=== PATIENT | female | born 1995 | race Caucasian/White ===

== ENCOUNTER 2023-08-08 13:09 | Emergency (ER) | payer MEDICAID, SELFPAY ==
[2023-08-08 13:21] VITALS: BP 127/82; PULSE 90; RESP 16; TEMP 36.6; O2SAT 98; BMI 27.8
--- NOTE | 2023-08-08 13:48 | ED_ITS ---
HPI - General Adult 2 General: Chief complaint: General Medical Stated complaint: full body pains Time Seen by Provider: 08/08/23 13:46 History of Present Illness: 28-year-old female comes in today with c omplaints of fatigue and general body aches. Patient has known history of anemia. Patient reports no other symptoms such as fever, cough, nausea vomiting, or diarrhea. Patient appears nontoxic. Patient appears in no pain. Associated symptoms: Deny chest pain, dyspnea, nausea, rash or vomiting Review of Systems 2 General: Reports: 10 or more systems reviewed and unremarkable except in HPI and below Const: Reports: body aches; Denies: fever(s) ENMT: Denies: throat pain Card: Denies: chest pain Resp: Denies: dyspnea GI: Denies: nausea, vomiting, diarrhea or constipation : Denies: difficulty voiding Musc: Denies: neck pain or back pain Skin/Breast: Denies: rash Physical Exam 2 Const: COMMON NORMALS: alert HENMT: COMMON NORMALS: normocephalic HEAD & SCALP: normocephalic MOUTH: Normal oral and palatal mucosa present Neck/C-Spine: COMMON NORMALS: full ROM Resp: COMMON NORMALS: normal respiratory effort and clear to auscultation bilaterally AUSCULTATION: clear to auscultation bilaterally Cardio: COMMON NORMALS: regular rate and regular rhythm RATE: regular rate RHYTHM: regular rhythm GI: COMMON NORMALS: Soft to palpation, non-tender and No hepatosplenomegaly present PALPATION: Yes Soft to palpation and Yes No hepatosplenomegaly present Extremity: COMMON NORMALS: normal to inspection Neuro: SENSORIUM/ORIENTATION: Yes alert Skin: COMMON NORMALS: turgor normal GENERAL SKIN EXAM: turgor normal Course 2 Vital Signs: Vital signs: Vital Signs Temperature 97.8 F 08/08/23 13:21 Pulse Rate 83 08/08/23 15:28 Respiratory Rate 16 08/08/23 15:28 Blood Pressure 137/97 08/08/23 13:56 Pulse Oximetry 98 08/08/23 15:28 Oxygen Delivery Me thod Room Air 08/08/23 13:56 [facility] - General Adult Medical Decision Making 28-year-old female comes in today with complaints of generalized body aches and fatigue. On exam lungs are clear to auscultation. Abdomen soft nontender. No organomegaly is noted. No edema is noted. Patient moves all extremities well. Differential diagnosis includes but not limited to viral syndrome, anemia, autoimmune disorder, malingering. CBC CMP was unremarkable. CRP and sed rate was normal. hCG was negative. Urinalysis was normal. Reviewed exam with patient recommended follow-up with primary care for further evaluation and treatment. Recommend return to the ER for new concerns or worsening symptoms. No signs of acute illness was noted at this time. Patient reported understanding and was stable and discharged home. Lab Data 08/08/23 13:53 08/08/23 13:53 Laboratory Results WBC 4.58 10^3/uL (3.29-11.43) 08/08/23 13:53 RBC 4.92 10^6/uL (3.85-5.65) 08/08/23 13:53 Hgb 9.90 g/dL (11.27-16.99) L 08/08/23 13:53 Hct 33.4 % (36-47) L 08/08/23 13:53 MCV 67.9 fl (85-98) L 08/08/23 13:53 MCH 20.1 pg (27-33) L 08/08/23 13:53 MCHC 29.6 g/dL (30-55) L 08/08/23 13:53 RDW 18.4 % (12.1-15.1) H 08/08/23 13:53 Plt Count 372 10^3/cmm (157-399) 08/08/23 13:53 MPV 8.5 fL (7.4-10.4) 08/08/23 13:53 Neut % (Auto) 64.2 % 08/08/23 13:53 Lymph % (Auto) 24.7 % 08/08/23 13:53 [place] % (Auto) 5.9 % 08/08/23 13:53 Eos % (Auto) 4.1 % 08/08/23 13:53 Baso % (Auto) 0.9 % 08/08/23 13:53 Neut # (Auto) 2.94 10^3/uL (1.8-7.7) 08/08/23 13:53 Lymph # (Auto) 1.1 10^3/uL (0.8-4.8) 08/08/23 13:53 [place] # (Auto) 0.3 10^3/uL (0.2-0.9) 08/08/23 13:53 Eos # (Auto) 0.2 10^3/uL (0.0-0.8) 08/08/23 13:53 Baso # (Auto) 0.0 10^3/uL (0.0-0.1) 08/08/23 13:53 Nucleated RBC % (auto) 0 % 08/08/23 13:53 Nucleated RBCs # 0.0 /100WBC 08/08/23 13:53 ESR 11 mm/hr (0-15) 08/08/23 13:53 Sodium 138 mmol/L (136-145) 08/08/23 13:53 Potassium 4.1 mmol/L (3.5-5.1) 08/08/23 13:53 Chloride 103 mmol/L (98-107) 08/08/23 13:53 Carbon Dioxide 24 mmol/L (22-29) 08/08/23 13:53 Anion Gap 15.1 (5-19) 08/08/23 13:53 BUN 9 mg/dL (6-20) 08/08/23 13:53 Creatinine 0.7 mg/dL (0.5-0.9) 08/08/23 13:53 GFR Calculation 100.4 mL/min (90-130) 08/08/23 13:53 Glucose 155 mg/dL (65-115) H 08/08/23 13:53 Calculated Osmolality 288 mOsm/kg (285-295) 08/08/23 13:53 Calcium 9.9 mg/dL (8.5-10.5) 08/08/23 13:53 Total Bilirubin 0.2 mg/dL (0.15-1.2) 08/08/23 13:53 AST 18 U/L (0-32) 08/08/23 13:53 ALT 15 U/L (0-33) 08/08/23 13:53 Alkaline Phosphatase 61 U/L (35-105) 08/08/23 13:53 Creatine Kinase 75 U/L (26-192) 08/08/23 13:53 C-Reactive Protein 3.0 mg/L (0.0-4.9) 08/08/23 13:53 Total Protein 7.7 g/dL (6.6-8.7) 08/08/23 13:53 Albumin 4.8 g/dL (3.5-5.2) 08/08/23 13:53 Globulin 2.9 g/dL (1.3-4.6) 08/08/23 13:53 HCG, Qual Negative (Negative) 08/08/23 13:53 Urine Color Yellow (Yellow) 08/08/23 14:53 Urine Appearance Sl hazy (CLEAR) A 08/08/23 14:53 Urine pH 6 (5-7) 08/08/23 14:53 Ur Specific [place] 1.015 (1.005-1.030) 08/08/23 14:53 Urine Protein Neg (Negative) 08/08/23 14:53 Urine Glucose (UA) Norm (Normal) 08/08/23 14:53 Urine Ketones Negative (Negative) 08/08/23 14:53 Urine Blood Neg (Negative) 08/08/23 14:53 Urine Nitrate Negative (Negative) 08/08/23 14:53 Urine Bilirubin Neg (Negative) 08/08/23 14:53 Urine Urobilinogen Norm mg/dL (Negative) 08/08/23 14:53 Ur Leukocyte Esterase Negative (Negative) 08/08/23 14:53 Urine RBC 0-4 /hpf (0-2) H 08/08/23 14:53 Urine WBC 5-10 /hpf (0-5) H 08/08/23 14:53 Ur Squamous Epith Cells 5-10 /hpf (0-5) H 08/08/23 14:53 Ur Transition Epith Cell 5-10 /hpf 08/08/23 14:53 Amorphous Sediment Not Reportable 08/08/23 14:53 Urine Bacteria Trace /hpf (NONE) 08/08/23 14:53 Urine Mucus None /hpf 08/08/23 14:53 No radiology studies performed this visit Discharge Plan Discharge Patient Disposition: Home Clinical Impression: Anemia Qualifiers: Anemia type: iron deficiency Iron deficiency anemia type: unspecified iron deficiency Qualified Code(s): D50.9 - Iron deficiency anemia, unspecified Condition: Stable Prescriptions: No Action No Known Home Medications Discharge Orders: Discharge ED (Routine); Ordered 08/08/23 Ordered By: John Floyd Referrals: Aster Prasad MD [Primary Care Provider] - Discharge Diet: Usual diet Discharge Activity: Increase activity as tolerated Patient Instructions: Anemia (ED) Activity Restrictions/Additional Instructions: Follow-up with primary care for further instructions. Return to ED for new concerns. Coding Level of Care Code ED [employer] for Fabricio Douglas
[2023-08-08 13:56] VITALS: BP 137/97; RESP 14; O2SAT 98
[2023-08-08 13:59] LABS: Basophils % 0.9 %; Eosinophils # 0.2 10^3/uL (0.0-0.8); Eosinophils % 4.1 %; Hematocrit 33.4 % (36-47); Lymphocytes # 1.1 10^3/uL (0.8-4.8); Lymphocytes % 24.7 %; Mean Corpuscular HGB Conc 29.6 g/dL (30-55); Mean Corpuscular Hemoglobin 20.1 pg (27-33); Mean Corpuscular Volume 67.9 fl (85-98); Mean Platelet Volume 8.5 fL (7.4-10.4); Monocytes # 0.3 10^3/uL (0.2-0.9); Monocytes % 5.9 %; Neutrophils # 2.94 10^3/uL (1.8-7.7); Neutrophils % 64.2 %; Nucleated Red Blood Cells % 0 %; Platelet Count 372 10^3/cmm (157-399); Red Blood Count 4.92 10^6/uL (3.85-5.65); Red Cell Distribution Width 18.4 % (12.1-15.1); White Blood Count 4.58 10^3/uL (3.29-11.43)
[2023-08-08 14:02] LABS: Erythrocyte Sedimentation Rate 11 mm/hr (0-15)
--- NOTE | 2023-08-08 14:14 | PC.PHAR ---
pt states takes no prescription or otc medications
[2023-08-08 14:21] LABS: Alanine Aminotransferase 15 U/L (0-33); Albumin Level 4.8 g/dL (3.5-5.2); Alkaline Phosphatase 61 U/L (35-105); Anion Gap 15.1 (5-19); Aspartate Amino Transferase 18 U/L (0-32); Blood Urea Nitrogen 9 mg/dL (6-20); Calcium 9.9 mg/dL (8.5-10.5); Carbon Dioxide 24 mmol/L (22-29); Chloride 103 mmol/L (98-107); Creatine Phosphokinase 75 U/L (26-192); Globulin 2.9 g/dL (1.3-4.6); Glomerular Filtration Rate 100.4 mL/min (90-130); Glucose 155 mg/dL (65-115); HCG, Serum Qual Negative (Negative); Osmolality Calculated 288 mOsm/kg (285-295); Potassium 4.1 mmol/L (3.5-5.1); Sodium 138 mmol/L (136-145); Total Bilirubin 0.2 mg/dL (0.15-1.2); Total Protein 7.7 g/dL (6.6-8.7)
[2023-08-08 15:09] LABS: Add Urine Microscopic? YES; Bilirubin Urine Neg (Negative); Blood Urine Neg (Negative); Glucose Urine UA Norm (Normal); Ketones Urine Negative (Negative); Leukocyte Esterase Urine Negative (Negative); Nitrate Urine Negative (Negative); Protein Urine Neg (Negative); Specific Gravity, Urine 1.015 (1.005-1.030); Urine Appearance SL Hazy (CLEAR); Urine Color Yellow (Yellow); Urobilinogen Urine Norm (Negative); pH Urine 6 (5-7)
[2023-08-08 15:28] VITALS: PULSE 83; RESP 16; O2SAT 98
[2023-08-08 15:33] LABS: RBC Urine 0-4 /hpf (0-2)
[2023-08-08 15:34] LABS: Add Urine Culture? No; Bacteria Urine TRACE /hpf
== END 2023-08-08 15:29 | disposition home or self-care (01) ==
PROVIDERS: Emergency Provider Nurse Practitioner Family; PCP Family Medicine
DX: D50.9 Iron deficiency anemia, unspecified (principal)
CPT/HCPCS: 36415; 80053; 81001; 82550; 84703; 85025; 85651; 86140; 99283

== ENCOUNTER 2024-02-15 09:30 | Oncology outpatient (recurring) (ONCR) | payer MEDICAID, SELFPAY ==
[2024-02-05 15:40] VITALS: BP 113/75; PULSE 80; RESP 16; TEMP 37.2; O2SAT 99
[2024-02-05] MEDS: iron sucrose 200 MG in sodium chloride 0.9% (100 ml) 100 ML 220 MG IV (15:49)
[2024-02-05] MEDS: sodium chloride 0.9% 250 ML 75 ML IV (15:49)
[2024-02-05 16:43] VITALS: BP 108/68; PULSE 78; RESP 16; TEMP 37.2; O2SAT 100
[2024-02-07 09:34] VITALS: BP 115/71; PULSE 80; RESP 18; TEMP 36.6; O2SAT 98
[2024-02-07] MEDS: iron sucrose 200 MG in sodium chloride 0.9% (100 ml) 100 ML 220 MG IV (09:42)
[2024-02-11 09:14] LABS: Basophils % 0.6 %; Eosinophils # 0.1 10^3/uL (0.0-0.8); Eosinophils % 2.5 %; Hematocrit 37.2 % (36-47); Lymphocytes # 1.2 10^3/uL (0.8-4.8); Lymphocytes % 22.3 %; Mean Corpuscular Hemoglobin 20.8 pg (27-33); Mean Corpuscular Volume 71.5 fl (85-98); Mean Platelet Volume 8.8 fL (7.4-10.4); Monocytes # 0.2 10^3/uL (0.2-0.9); Monocytes % 4.7 %; Neutrophils % 69.7 %; Nucleated Red Blood Cells % 0 %; Platelet Count 382 10^3/cmm (157-399); Red Cell Distribution Width 20.2 % (12.1-15.1); White Blood Count 5.16 10^3/uL (3.29-11.43)
[2024-02-11 09:34] LABS: Iron 45 ug/dL (37-145); Percent Saturation 10.8 % (20-50); Total Iron Binding Capacity 414 mcg/dl; Unsaturated Iron Binding 369 ug/dL (112-347)
== END 2024-02-24 23:59 | disposition home or self-care (01) ==
PROVIDERS: PCP Family Medicine; Visit Provider Internal Medicine Medical Oncology
DX: Z53.9 Procedure and treatment not carried out, unspecified reason (principal)
CPT/HCPCS: 36415; 83540; 83550; 85025; 96365; J1756; J7050

== ENCOUNTER 2024-03-06 07:24 | Oncology outpatient (recurring) (ONCR) | payer MEDICAID, SELFPAY ==
[2024-03-06 07:45] VITALS: BP 117/79; PULSE 76; TEMP 36.7; O2SAT 98
[2024-03-06] MEDS: sodium chloride 0.9% 500 ML 75 ML IV (08:22)
[2024-03-06] MEDS: diphenhydrAMINE 50 mg/mL SDV 1mL 25 MG IVP (08:23)
[2024-03-06] MEDS: acetaminophen 325 mg Tablet 650 MG PO (08:25)
[2024-03-06] MEDS: iron dextran 25 MG in SYRINGE 1 EACH 30 MG IVP (09:01)
[2024-03-06] MEDS: IRON DEXTRAN IV (10:01)
[2024-03-06] MEDS: SODIUM CHLORIDE 0.9% IV (10:01)
[2024-03-06 14:05] VITALS: BP 124/76; PULSE 59; RESP 16; TEMP 36.7; O2SAT 96
== END 2024-03-26 23:59 | disposition home or self-care (01) ==
PROVIDERS: PCP Family Medicine; Visit Provider Internal Medicine Medical Oncology
DX: D50.9 Iron deficiency anemia, unspecified (principal)
CPT/HCPCS: 96365; 96366; 96375; J1200; J1750; J7030; J7040

== ENCOUNTER 2024-04-05 16:04 | Emergency (ER) | payer MEDICAID, SELFPAY ==
[2024-04-05 16:31] VITALS: BP 121/72; PULSE 72; RESP 17; TEMP 36.6; O2SAT 99; BMI 27.1
--- NOTE | 2024-04-05 17:05 | ED_ITS ---
Documented by User: Hernando Griffiths DO 04/07/24 05:57 HPI - Nausea/Vomiting/Diarrhea 2 General: Chief complaint: Nausea/Vomiting/Diarrhea Stated complaint: headache, n/v, abd pain Time Seen by Provider: 04/05/24 17:02 History of Present Illness: 28-year-old female presents to the [facility] room with 2 to complaints for she has a tender spot in the left lower occipital area. She is very tender when she pushes on that particular spot. No trauma no recent injuries. Secondarily she also has abdominal pain intermittently mostly in the epigastric area she states it hurts she tries to eat or drink it if they can get sick to her stomach. She was seen earlier in the week by her primary care doctor and had a series of acute abdominal pictures done and these were negative for bowel obstruction. She denies any dysuria urgency or frequency. Associated nausea: Yes Associated symtoms: Reports headache(s) and nausea; Denies chest pain or dysuria Related Data Home Medications Medication Instructions Recorded Confirmed vitamin#30 30 mg iron-10 cap PO 12/27/23 02/15/24 mg iron-folic acid 1 mg-omg3 capsule Previous Rx's Medication Instructions Recorded ibuprofen 600 mg tablet 600 mg PO Q8H PRN pain #30 tabs 02/15/24 prednisone 20 mg tablet 60 mg (3 x 20 mg) PO DAILY 5 days 02/15/24 #15 tabs lansoprazole 30 mg capsule,delayed 30 mg PO DAILY #30 caps 04/05/24 release (Prevacid) ondansetron 4 mg disintegrating 4 mg PO Q6H PRN nausea and 04/05/24 tablet vomiting #14 tabs Allergies Allergy/AdvReac Type Severity Reaction Status Date / Time No Known Allergies Allergy Verified 04/05/24 16:35 Review of Systems 2 Const: Denies: fever(s) or chills Card: Denies: chest pain Resp: Denies: dyspnea GI: Reports: abdominal pain, nausea and vomiting : Denies: dysuria, urinary frequency or urinary urgency Musc: Denies: neck pain or back pain Skin/Breast: Denies: rash Neuro: Reports: headache(s) PFSH ED 2 PFSH: Medical History Anxiety and depression Family history of thromboembolic disease Iron deficiency anemia Family History Mother Kidney disease Brother Thromboembolism Sister Thromboembolism Other Cancer Clotting disorder Social History Smoking and tobacco/nicotine status: never used tobacco/nicotine Physical Exam 2 Const: COMMON NORMALS: no acute distress GENERAL APPEARANCE: cooperative and comfortable ORIENTATION/CONSCIOUSNESS: Yes awake, Yes oriented to person, Yes oriented to place and Yes oriented to time HENMT: COMMON NORMALS: normocephalic, atraumatic and hearing grossly normal bilaterally HEAD & SCALP: normocephalic and atraumatic Resp: COMMON NORMALS: normal respiratory effort, No retractions, No use of accessory muscles and clear to auscultation bilaterally AUSCULTATION: clear to auscultation bilaterally Cardio: COMMON NORMALS: regular rate, regular rhythm and No murmurs present (Cardio) RATE: regular rate RHYTHM: regular rhythm GI: COMMON NORMALS: No hepatosplenomegaly present AUSCULTATION: Yes normoactive bowel sounds PALPATION: Yes Tenderness to palpation present (GI) (Epigastric), No Guarding due to palpation present (GI) and Yes No hepatosplenomegaly present Extremity: COMMON NORMALS: normal to inspection, capillary refill normal, no clubbing, cyanosis or edema, no calf tenderness and no pedal edema Neuro: SENSORIUM/ORIENTATION: Yes oriented to person, Yes oriented to place and Yes oriented to time Skin: COMMON NORMALS: no rashes or lesions noted GENERAL SKIN EXAM: no rashes or lesions noted Course 2 Vital Signs: Vital signs: Vital Signs Temperature 98 F 04/05/24 16:31 Pulse Rate 69 04/05/24 19:51 Respiratory Rate 16 04/05/24 19:51 Blood Pressure 113/76 04/05/24 19:51 Pulse Oximetry 99 04/05/24 19:51 Oxygen Delivery Me thod Room Air 04/05/24 19:11 MDM - Nausea/Vomiting/Diarrhea Medical Decision Making Care signed out to Dr. Toth at change of shift. See final notes for diagnosis and disposition. 28-year-old female presenting with occipital head pain with a tender spot in the area, as well as epigastric abdominal pain and vomiting. CBC BMP liver enzymes are all normal. Urinalysis shows hematuria, but the patient is on her period. She is COVID-negative by PCR. Her CRP is only 3 she will be treated symptomatically. Outpatient follow-up. Lab Data 04/05/24 17:04/05/24 17: Radiology Impressions Abdomen/Pelvis CT 04/05/24 17:10 IMPRESSION: No acute findings. Head CT 04/05/24 17:10 IMPRESSION: No acute intracranial findings. Laboratory Results WBC 7.28 10^3/uL (3.29-11.43) 04/05/24: RBC 5.22 10^6/uL (3.85-5.65) 04/05/24: Hgb 13.40 g/dL (11.27-16.99) 04/05/24: Hct 42.1 % (36-47) 04/05/24: MCV 80.7 fl (85-98) L 04/05/24: MCH 25.7 pg (27-33) L 04/05/24: MCHC 31.8 g/dL (30-55) 04/05/24 17: RDW 24.0 % (12.1-15.1) H 04/05/24: Plt Count 273 10^3/cmm (157-399) 04/05/24: MPV 8.5 fL (7.4-10.4) 04/05/24: Neut % (Auto) 74.4 % 04/05/24: Lymph % (Auto) 19.0 % 04/05/24: [place] % (Auto) 5.2 % 04/05/24 17: Eos % (Auto) 1.0 % 04/05/24: Baso % (Auto) 0.3 % 04/05/24: Neut # (Auto) 5.42 10^3/uL (1.8-7.7) 04/05/24: Lymph # (Auto) 1.4 10^3/uL (0.8-4.8) 04/05/24: [place] # (Auto) 0.4 10^3/uL (0.2-0.9) 04/05/24: Eos # (Auto) 0.1 10^3/uL (0.0-0.8) 04/05/24 17:25 Baso # (Auto) 0.0 10^3/uL (0.0-0.1) 04/05/24 17:25 Nucleated RBC % (auto) 0 % 04/05/24 17:25 Nucleated RBCs # 0.0 /100WBC 04/05/24 17:25 Sodium 142 mmol/L (136-145) 04/05/24 17:25 Potassium 3.8 mmol/L (3.5-5.1) 04/05/24 17:25 Chloride 105 mmol/L (98-107) 04/05/24 17:25 Carbon Dioxide 25 mmol/L (22-29) 04/05/24 17:25 Anion Gap 15.8 (5-19) 04/05/24 17:25 BUN 10 mg/dL (6-20) 04/05/24 17:25 Creatinine 0.7 mg/dL (0.5-0.9) 04/05/24 17:25 GFR Calculation 100.4 mL/min (90-130) 04/05/24 17:25 Glucose 81 mg/dL (65-115) 04/05/24 17:25 Calculated Osmolality 292 mOsm/kg (285-295) 04/05/24 17:25 Calcium 9.7 mg/dL (8.5-10.5) 04/05/24 17:25 Total Bilirubin 0.2 mg/dL (0.15-1.2) 04/05/24 17:25 AST 18 U/L (0-32) 04/05/24 17:25 ALT 12 U/L (0-33) 04/05/24 17:25 Alkaline Phosphatase 54 U/L (35-105) 04/05/24 17:25 C-Reactive Protein 3.0 mg/L (0.0-4.9) 04/05/24 17:25 Total Protein 7.8 g/dL (6.6-8.7) 04/05/24 17:25 Albumin 4.9 g/dL (3.5-5.2) 04/05/24 17:25 Globulin 2.9 g/dL (1.3-4.6) 04/05/24 17:25 Lipase 38 U/L (13-60) 04/05/24 17:25 HCG, Qual Negative (Negative) 04/05/24 17:25 Urine Color Red (Yellow) A 04/05/24 17:18 Urine Appearance Cloudy (CLEAR) A 04/05/24 17:18 Urine pH 5.5 (5-7) 04/05/24 17:18 Ur Specific [place] 1.028 (1.005-1.030) 04/05/24 17:18 Urine Protein 1+ (Negative) A 04/05/24 17:18 Urine Glucose (UA) Negative (Normal) 04/05/24 17:18 Urine Ketones Negative (Negative) 04/05/24 17:18 Urine Blood 3+ (Negative) A 04/05/24 17:18 Urine Nitrate Negative (Negative) 04/05/24 17:18 Urine Bilirubin Negative (Negative) 04/05/24 17:18 Urine Urobilinogen 1.0 mg/dL (Negative) 04/05/24 17:18 Ur Leukocyte Esterase Trace (Negative) A 04/05/24 17:18 Urine RBC >100 /hpf (0-2) H 04/05/24 17:18 Urine WBC 11-20 /hpf (0-5) H 04/05/24 17:18 Ur Squamous Epith Cells 0-5 /hpf (0-5) 04/05/24 17:18 Amorphous Sediment Not Reportable 04/05/24 17:18 Urine Bacteria None seen /hpf (NONE) 04/05/24 17:18 Hyaline Casts 0-4 /lpf H 04/05/24 17:18 Urine Opiates Screen Negative ng/mL (Negative) 04/05/24 17:18 Ur Barbiturates Screen Negative ng/mL (Negative) 04/05/24 17:18 Ur Phencyclidine Scrn Negative ng/mL (Negative) 04/05/24 17:18 Ur Amphetamines Screen Negative ng/mL (Negative) 04/05/24 17:18 U Benzodiazepines Scrn Negative ng/mL (Negative) 04/05/24 17:18 Urine Cocaine Screen Negative ng/mL (Negative) 04/05/24 17:18 U Marijuana (THC) Screen Negative ng/mL (Negative) 04/05/24 17:18 Coronavirus 229E (PCR) Not detected (NOT DETECT) 04/05/24 17:34 SARS-CoV-2 (PCR) Not detected (NOT DETECT) 04/05/24 17:34 Discharge Plan Discharge Patient Disposition: Home Clinical Impression: Gastritis, Occipital headache Condition: Stable Prescriptions: New Prevacid 30 mg capsule,delayed release(DR/EC) 30 mg PO DAILY Qty: 30 0RF ondansetron 4 mg tablet,disintegrating 4 mg PO Q6H PRN (Reason: nausea and vomiting) Qty: 14 0RF No Action PNV #[id number] 30 mg iron-10 mg iron-1 mg capsule PO prednisone 20 mg tablet 60 mg PO DAILY 5 Days Qty: 15 0RF ibuprofen 600 mg tablet 600 mg PO Q8H PRN (Reason: pain) Qty: 30 0RF Discharge Orders: Discharge ED (Routine); Ordered 04/05/24 Ordered By: Rm Toth Referrals: Aster Prasad MD [Primary Care Provider] - 1-3 days Patient Instructions: Gastritis (ED), Opioid Safety, Pain Management Activity Restrictions/Additional Instructions: Imaging workup did not reveal a cause of your occipital pain today. If pain persists, and tender area persists, outpatient ultrasound could be ordered as a follow-up. Your head CAT scan was normal. Your abdominal CAT scan was normal. You will be treated for gastritis symptomatically. Follow-up with your doctor next week. Return for worsening symptoms. 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 [employer] Documented by User: Rm Toth, 04/05/24 23:49 HPI - Nausea/Vomiting/Diarrhea 2 General: Chief complaint: Nausea/Vomiting/Diarrhea Stated complaint: headache, n/v, abd pain Time Seen by Provider: 04/05/24 17:02 Related Data Home Medications Medication Instructions Recorded Confirmed vitamin#30 30 mg iron-10 cap PO 12/27/23 02/15/24 mg iron-folic acid 1 mg-omg3 capsule Previous Rx's Medication Instructions Recorded ibuprofen 600 mg tablet 600 mg PO Q8H PRN pain #30 tabs 02/15/24 prednisone 20 mg tablet 60 mg (3 x 20 mg) PO DAILY 5 days 02/15/24 #15 tabs lansoprazole 30 mg capsule,delayed 30 mg PO DAILY #30 caps 04/05/24 release (Prevacid) ondansetron 4 mg disintegrating 4 mg PO Q6H PRN nausea and 04/05/24 tablet vomiting #14 tabs Allergies Allergy/AdvReac Type Severity Reaction Status Date / Time No Known Allergies Allergy Verified 04/05/24 16:35 PFSH ED 2 PFSH: Medical History Anxiety and depression Family history of thromboembolic disease Iron deficiency anemia Family History Mother Kidney disease Brother Thromboembolism Sister Thromboembolism Other Cancer Clotting disorder Social History Smoking and tobacco/nicotine status: never used tobacco/nicotine Course 2 Vital Signs: Vital signs: Vital Signs Temperature 98 F 04/05/24 16:31 Pulse Rate 69 04/05/24 19:51 Respiratory Rate 16 04/05/24 19:51 Blood Pressure 113/76 04/05/24 19:51 Pulse Oximetry 99 04/05/24 19:51 Oxygen Delivery Me thod Room Air 04/05/24 19:11 MDM - Nausea/Vomiting/Diarrhea Medical Decision Making 28-year-old female presenting with occipital head pain with a tender spot in the area, as well as epigastric abdominal pain and vomiting. CBC BMP liver enzymes are all normal. Urinalysis shows hematuria, but the patient is on her period. She is COVID-negative by PCR. Her CRP is only 3 she will be treated symptomatically. Outpatient follow-up. Lab Data 04/05/24 17:25 04/05/24 17:25 Radiology Impressions Abdomen/Pelvis CT 04/05/24 17:10 IMPRESSION: No acute findings. Head CT 04/05/24 17:10 IMPRESSION: No acute intracranial findings. Laboratory Results WBC 7.28 10^3/uL (3.29-11.43) 04/05/24 17:25 RBC 5.22 10^6/uL (3.85-5.65) 04/05/24 17:25 Hgb 13.40 g/dL (11.27-16.99) 04/05/24 17: Hct 42.1 % (36-47) 04/05/24: MCV 80.7 fl (85-98) L 04/05/24 17: MCH 25.7 pg (27-33) L 04/05/24: MCHC 31.8 g/dL (30-55) 04/05/24: RDW 24.0 % (12.1-15.1) H 04/05/24 17: Plt Count 273 10^3/cmm (157-399) 04/05/24: MPV 8.5 fL (7.4-10.4) 04/05/24: Neut % (Auto) 74.4 % 04/05/24 17: Lymph % (Auto) 19.0 % 04/05/24: [place] % (Auto) 5.2 % 04/05/24: Eos % (Auto) 1.0 % 04/05/24: Baso % (Auto) 0.3 % 04/05/24: Neut # (Auto) 5.42 10^3/uL (1.8-7.7) 04/05/24: Lymph # (Auto) 1.4 10^3/uL (0.8-4.8) 04/05/24: [place] # (Auto) 0.4 10^3/uL (0.2-0.9) 04/05/24: Eos # (Auto) 0.1 10^3/uL (0.0-0.8) 04/05/24: Baso # (Auto) 0.0 10^3/uL (0.0-0.1) 04/05/24: Nucleated RBC % (auto) 0 % 04/05/24: Nucleated RBCs # 0.0 /100WBC 04/05/24 17:25 Sodium 142 mmol/L (136-145) 04/05/24 17:25 Potassium 3.8 mmol/L (3.5-5.1) 04/05/24: Chloride 105 mmol/L (98-107) 04/05/24 17:25 Carbon Dioxide 25 mmol/L (22-29) 04/05/24 17:25 Anion Gap 15.8 (5-19) 04/05/24 17:25 BUN 10 mg/dL (6-20) 04/05/24 17:25 Creatinine 0.7 mg/dL (0.5-0.9) 04/05/24 17:25 GFR Calculation 100.4 mL/min (90-130) 04/05/24 17:25 Glucose 81 mg/dL (65-115) 04/05/24 17:25 Calculated Osmolality 292 mOsm/kg (285-295) 04/05/24 17:25 Calcium 9.7 mg/dL (8.5-10.5) 04/05/24 17:25 Total Bilirubin 0.2 mg/dL (0.15-1.2) 04/05/24 17:25 AST 18 U/L (0-32) 04/05/24 17:25 ALT 12 U/L (0-33) 04/05/24 17:25 Alkaline Phosphatase 54 U/L (35-105) 04/05/24 17:25 C-Reactive Protein 3.0 mg/L (0.0-4.9) 04/05/24 17:25 Total Protein 7.8 g/dL (6.6-8.7) 04/05/24 17:25 Albumin 4.9 g/dL (3.5-5.2) 04/05/24 17:25 Globulin 2.9 g/dL (1.3-4.6) 04/05/24 17:25 Lipase 38 U/L (13-60) 04/05/24 17:25 HCG, Qual Negative (Negative) 04/05/24 17:25 Urine Color Red (Yellow) A 04/05/24 17:18 Urine Appearance Cloudy (CLEAR) A 04/05/24 17:18 Urine pH 5.5 (5-7) 04/05/24 17:18 Ur Specific [place] 1.028 (1.005-1.030) 04/05/24 17:18 Urine Protein 1+ (Negative) A 04/05/24 17:18 Urine Glucose (UA) Negative (Normal) 04/05/24 17:18 Urine Ketones Negative (Negative) 04/05/24 17:18 Urine Blood 3+ (Negative) A 04/05/24 17:18 Urine Nitrate Negative (Negative) 04/05/24 17:18 Urine Bilirubin Negative (Negative) 04/05/24 17:18 Urine Urobilinogen 1.0 mg/dL (Negative) 04/05/24 17:18 Ur Leukocyte Esterase Trace (Negative) A 04/05/24 17:18 Urine RBC >100 /hpf (0-2) H 04/05/24 17:18 Urine WBC 11-20 /hpf (0-5) H 04/05/24 17:18 Ur Squamous Epith Cells 0-5 /hpf (0-5) 04/05/24 17:18 Amorphous Sediment Not Reportable 04/05/24 17:18 Urine Bacteria None seen /hpf (NONE) 04/05/24 17:18 Hyaline Casts 0-4 /lpf H 04/05/24 17:18 Urine Opiates Screen Negative ng/mL (Negative) 04/05/24 17:18 Ur Barbiturates Screen Negative ng/mL (Negative) 04/05/24 17:18 Ur Phencyclidine Scrn Negative ng/mL (Negative) 04/05/24 17:18 Ur Amphetamines Screen Negative ng/mL (Negative) 04/05/24 17:18 U Benzodiazepines Scrn Negative ng/mL (Negative) 04/05/24 17:18 Urine Cocaine Screen Negative ng/mL (Negative) 04/05/24 17:18 U Marijuana (THC) Screen Negative ng/mL (Negative) 04/05/24 17:18 Coronavirus 229E (PCR) Not detected (NOT DETECT) 04/05/24 17:34 SARS-CoV-2 (PCR) Not detected (NOT DETECT) 04/05/24 17:34 All radiology interpretation(s) finalized by discharge Discharge Plan Discharge Patient Disposition: Home Clinical Impression: Gastritis, Occipital headache Condition: Stable Prescriptions: New Prevacid 30 mg capsule,delayed release(DR/EC) 30 mg PO DAILY Qty: 30 0RF ondansetron 4 mg tablet,disintegrating 4 mg PO Q6H PRN (Reason: nausea and vomiting) Qty: 14 0RF No Action PNV #[id number] 30 mg iron-10 mg iron-1 mg capsule PO prednisone 20 mg tablet 60 mg PO DAILY 5 Days Qty: 15 0RF ibuprofen 600 mg tablet 600 mg PO Q8H PRN (Reason: pain) Qty: 30 0RF Discharge Orders: Discharge ED (Routine); Ordered 04/05/24 Ordered By: Rm Toth Referrals: Aster Prasad MD [Primary Care Provider] - 1-3 days Patient Instructions: Gastritis (ED), Opioid Safety, Pain Management Activity Restrictions/Additional Instructions: Imaging workup did not reveal a cause of your occipital pain today. If pain persists, and tender area persists, outpatient ultrasound could be ordered as a follow-up. Your head CAT scan was normal. Your abdominal CAT scan was normal. You will be treated for gastritis symptomatically. Follow-up with your doctor next week. Return for worsening symptoms. 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
--- NOTE | 2024-04-05 17:10 | CTR_ITS ---
PROCEDURE INFORMATION: Exam: CT Head Without Contrast Exam date and time: 04/05/2024 6:08 PM Age: 28 years old Clinical indication: Pain; Headache; Patient HX: C/O WYMAN; Additional info: Headahce TECHNIQUE: Imaging protocol: Computed tomography of the head without contrast. Radiation optimization: All CT scans at this facility use at least one of these dose optimization techniques: automated exposure control; mA and/or kV adjustment per patient size (includes targeted exams where dose is matched to clinical indication); or iterative reconstruction. COMPARISON: No relevant prior studies available. RADIATION DOSE METRICS: Total DLP (mGy-cm): 918.38 FINDINGS: Brain: No acute intracranial hemorrhage or territorial infarction. No mass effect or midline shift. Cerebral ventricles: No ventriculomegaly. Paranasal sinuses: Visualized sinuses are unremarkable. No fluid levels. Mastoid air cells: Visualized mastoid air cells are well aerated. Bones: Unremarkable. No acute fracture. Soft tissues: Unremarkable. CT/CT head wo con* [id number] IMPRESSION: No acute intracranial findings.
--- NOTE | 2024-04-05 17:10 | CTR_ITS ---
PROCEDURE INFORMATION: Exam: CT Abdomen And Pelvis With Contrast Exam date and time: 04/05/2024 6:11 PM Age: 28 years old Clinical indication: Nausea and vomiting; Abdominal pain; Generalized; Patient HX: Diffuse abd pain with n/v/d. TECHNIQUE: Imaging protocol: Computed tomography of the abdomen and pelvis with contrast. Radiation optimization: All CT scans at this facility use at least one of these dose optimization techniques: automated exposure control; mA and/or kV adjustment per patient size (includes targeted exams where dose is matched to clinical indication); or iterative reconstruction. Contrast material: OMNI 350; Contrast volume: 100 ml; Contrast route: INTRAVENOUS (IV); COMPARISON: CR XR abdomen min 2V 62404 04/01/2024 4:32 PM RADIATION DOSE METRICS: Total DLP (mGy-cm): 472.41 FINDINGS: Liver: Normal. No mass. Gallbladder and biliary ducts: Normal. No calcified stones. No ductal dilation. Pancreas: Normal. No ductal dilation. Spleen: Normal. No splenomegaly. Adrenal glands: Normal. No mass. Kidneys and ureters: Normal. No hydronephrosis. Stomach and bowel: Unremarkable. No obstruction. No mucosal thickening. Appendix: No evidence of appendicitis. Intraperitoneal space: Unremarkable. No free air. No significant fluid collection. Vasculature: Unremarkable. No abdominal aortic aneurysm. Lymph nodes: Unremarkable. No enlarged lymph nodes. Urinary bladder: Unremarkable as visualized. Reproductive: Unremarkable as visualized. Bones/joints: Unremarkable. No acute fracture. Soft tissues: Unremarkable. CT/CT abdomen pelvis w con* [id number] IMPRESSION: No acute findings.
[2024-04-05 17:30] LABS: Basophils % 0.3 %; Eosinophils # 0.1 10^3/uL (0.0-0.8); Hematocrit 42.1 % (36-47); Lymphocytes # 1.4 10^3/uL (0.8-4.8); Mean Corpuscular HGB Conc 31.8 g/dL (30-55); Mean Corpuscular Hemoglobin 25.7 pg (27-33); Mean Corpuscular Volume 80.7 fl (85-98); Mean Platelet Volume 8.5 fL (7.4-10.4); Monocytes # 0.4 10^3/uL (0.2-0.9); Monocytes % 5.2 %; Neutrophils # 5.42 10^3/uL (1.8-7.7); Neutrophils % 74.4 %; Nucleated Red Blood Cells % 0 %; Platelet Count 273 10^3/cmm (157-399); Red Blood Count 5.22 10^6/uL (3.85-5.65); White Blood Count 7.28 10^3/uL (3.29-11.43)
[2024-04-05 17:33] LABS: Bilirubin Urine Negative (Negative); Blood Urine 3+ (Negative); Glucose Urine UA Negative (Normal); Ketones Urine Negative (Negative); Leukocyte Esterase Urine Trace (Negative); Nitrate Urine Negative (Negative); Protein Urine 1+ (Negative); Specific Gravity, Urine 1.028 (1.005-1.030); Urine Appearance Cloudy (CLEAR); pH Urine 5.5 (5-7)
[2024-04-05 17:37] LABS: Bacteria Urine None Seen /hpf; Hyaline Casts Urine 0-4 /lpf; RBC Urine >100 /hpf (0-2); Squamous Epithelial Cell Urine 0-5 /hpf (0-5)
[2024-04-05 17:39] LABS: Add Urine Culture? Yes; Urine Color Red (Yellow)
[2024-04-05 17:46] LABS: Alanine Aminotransferase 12 U/L (0-33); Albumin Level 4.9 g/dL (3.5-5.2); Alkaline Phosphatase 54 U/L (35-105); Anion Gap 15.8 (5-19); Aspartate Amino Transferase 18 U/L (0-32); Blood Urea Nitrogen 10 mg/dL (6-20); Calcium 9.7 mg/dL (8.5-10.5); Carbon Dioxide 25 mmol/L (22-29); Chloride 105 mmol/L (98-107); Creatinine Clr Calc Pharmacy 112.3766; Globulin 2.9 g/dL (1.3-4.6); Glomerular Filtration Rate 100.4 mL/min (90-130); Glucose 81 mg/dL (65-115); Lipase 38 U/L (13-60); Osmolality Calculated 292 mOsm/kg (285-295); Potassium 3.8 mmol/L (3.5-5.1); Sodium 142 mmol/L (136-145); Total Bilirubin 0.2 mg/dL (0.15-1.2); Total Protein 7.8 g/dL (6.6-8.7)
[2024-04-05 17:48] LABS: Amphetamines Screen Urine Negative (Negative); Barbiturates Screen Urine Negative (Negative); Benzodiazepines Screen Urine Negative (Negative); Cocaine Screen Urine Negative (Negative); Opiate Screen Urine Negative (Negative); PCP Screen Urine Negative (Negative); THC Screen Urine Negative (Negative)
[2024-04-05 17:50] LABS: HCG, Serum Qual Negative (Negative)
[2024-04-05] MEDS: ondansetron 2 mg/ML SDV 2 mL 4 MG IVP (17:54)
[2024-04-05] MEDS: sodium chloride 0.9% 1,000 ML 999 ML IV ×2 (17:56→19:08)
[2024-04-05] MEDS: ketorolac 30 mg/mL INJ IVP (17:56)
[2024-04-05] MEDS: iohexol 350 mg/mL 500 mL Btl (per mL) IV (18:17)
[2024-04-05 18:26] VITALS: BP 104/77; O2SAT 99
[2024-04-05 19:11] VITALS: BP 104/74; PULSE 71; O2SAT 100
[2024-04-05 19:37] LABS: Adenovirus Not Detected (NOT DETECT); Chlamydia Pneumoniae Not Detected (NOT DETECT); Coronavirus 229E,HKU1,NL63,OC4 Not Detected (NOT DETECT); Human Metapneumovirus Not Detected (NOT DETECT); Human Rhinovirus/Enterovirus Not Detected (NOT DETECT); Influenza A Not Detected (NOT DETECT); Influenza A H1 Not Detected (NOT DETECT); Influenza A H1-2009 Not Detected (NOT DETECT); Influenza A H3 Not Detected (NOT DETECT); Influenza B Not Detected (NOT DETECT); Mycoplasma Pneumoniae Not Detected (NOT DETECT); Parainfluenza Virus Type 1 Not Detected (NOT DETECT); Parainfluenza Virus Type 2 Not Detected (NOT DETECT); Parainfluenza Virus Type 3 Not Detected (NOT DETECT); Parainfluenza Virus Type 4 Not Detected (NOT DETECT); Respiratory Syncytial Virus A Not Detected (NOT DETECT); Respiratory Syncytial Virus B Not Detected (NOT DETECT); SARS-COV-2 Not Detected (NOT DETECT)
[2024-04-05 19:51] VITALS: BP 113/76; PULSE 69; RESP 16; O2SAT 99
== END 2024-04-05 19:49 | disposition home or self-care (01) ==
PROVIDERS: Emergency Medicine; Family Medicine; Emergency Provider Emergency Medicine; PCP Family Medicine
DX: K29.70 Gastritis, unspecified, without bleeding (principal); G44.89 Other headache syndrome; Z11.52 Encounter for screening for COVID-19
CPT/HCPCS: 36415; 70450; 74177; 80053; 80306; 81001; 83690; 84703; 85025; 86140; 87086; 87635; 96361; 96374; 96375; 99285; J1885; J2405; J7030; Q9967

== ENCOUNTER 2024-04-30 15:24 | Outpatient (CLI) | payer MEDICAID, SELFPAY | END 2024-04-30 15:25 | disposition home or self-care (01) | LOC: SLEEP 15:25 | PROVIDERS: PCP Family Medicine; Visit Provider Family Medicine | DX: G47.10 Hypersomnia, unspecified (principal) | CPT/HCPCS: G0399 ==

== ENCOUNTER → 2024-05-06 15:46 | Outpatient (BNVA) | payer MEDICAID, SELFPAY | PROVIDERS: PCP Family Medicine; Visit Provider Obstetrics & Gynecology | DX: Z00.00 Encounter for general adult medical examination without abnormal findings (principal) | CPT/HCPCS: 88175 ==

== ENCOUNTER 2024-05-13 07:42 | Day surgery (SDC) | payer MEDICAID, SELFPAY ==
[2024-05-13 08:04] LABS: OR HCG Qualitative Urine Negative (Negative)
[2024-05-13 08:06] VITALS: BP 130/89; PULSE 82; RESP 18; TEMP 37.1; O2SAT 97
--- NOTE | 2024-05-13 08:27 | W.PM.OPSUD ---
Surgery/Procedure H&P Update DATE OF PROCEDURE: May 13, 2024 DATE H&P PERFORMED: 05/01/24 H&P UPDATE INFORMATION: I have reviewed H&P completed within last 30 days, I have examined patient prior to procedure and No changes to prior documentation PLANNED PROCEDURE: Operation Date: 05/13/24 08:40 Proposed Procedures p EGD - 96323, D50.9(Not Applicable) - Jonnie Nuñez MD
[2024-05-13] MEDS: sodium chloride 0.9% 1,000 ML 30 ML IV (08:31)
--- NOTE | 2024-05-13 08:42 | ANES.PREANE2 ---
Pre-Anesthetic Assessment Height/Weight: Height 4 ft 10 in Weight 125 lb Temp Pulse Resp BP Pulse Ox O2 Del Method 98.8 F 82 18 130/89 97 Room Air 05/13/24 08:06 05/13/24 08:06 05/13/24 08:06 05/13/24 08:06 05/13/24 08:06 05/13/24 08:06 Operation Date: 05/13/24 08:40 Proposed Procedures p EGD - 00361, D50.9(Not Applicable) - Jonnie Nuñez MD Last intake: Intake Last Liquid Date 05/12/24 Last Liquid Time 20:00 Last Solid Date 05/12/24 Last Solid Time 18:00 Social No alcohol and No tobacco Exam alert, oriented x 3, clear to auscultation bilaterally and regular rate & rhythm Airway Submandibular: within normal limits Cervical ROM: within normal limits Mallampati: Class I Dentition: full Anesthetic Plan ASA status: 2 Anesthesia: MAC Other: No prior issues with anesthesia NPO since Anxiety Patient denies any cardiac or pulmonary issues METs greater than 4 Plan for MAC anesthetic Medications/Allergies Home Medications Medication Instructions Recorded Confirmed Last Taken Type metronidazole 500 mg tablet 500 mg PO BID #14 tabs 05/06/24 05/08/24 05/12/24 Rx Allergies Allergy/AdvReac Type Severity Reaction Status Date / Time No Known Allergies Allergy Verified 05/06/24 15:29 Current Medications Generic Name Dose Route Start Last Admin Trade Name Freq PRN Reason Stop Dose Admin Sodium Chloride 1,000 mls @ 30 mls/hr 05/13/24 08:00 05/13/24 08:31 Sodium Chloride 0.9% IV 30 mls/hr .Q24H FRANSISCA Administration PFSH Anesthesia Medical History Anxiety and depression Family history of thromboembolic disease Iron deficiency anemia Family History Mother Kidney disease Brother Thromboembolism Sister Thromboembolism Grandfather Brain cancer Lung cancer Grandmother Leukemia Breast cancer Other Cancer Clotting disorder Denies family history of Colon cancer Ovarian cancer Prostate cancer Diabetes Heart disease Hypertension Uterine cancer Thyroid disease Stroke Social History Smoking and tobacco/nicotine status: never used tobacco/nicotine Female Reproductive History Date of last menstrual period: 04/03/24 Data Anesthesia Cardiac Studies: No Data to Display
[2024-05-13 09:11] VITALS: BP 96/66; PULSE 76; RESP 18; TEMP 36.2; O2SAT 97
[2024-05-13 09:25] VITALS: BP 112/78; PULSE 72; RESP 18; TEMP 36.3; O2SAT 98
--- NOTE | 2024-05-13 10:11 | ANE.PACU2 ---
Inpatient post-anesthesia follow up: Airway intact: Yes Vital signs: Temperature 97.3 F Pulse Rate 72 Respiratory Rate 18 Blood Pressure 112/78 Pulse Oximetry 98 Oxygen Delivery Me thod Room Air Oxygen Flow Rate Fraction of Inspir ed Oxygen Hydration adequate: Yes Nausea and vomiting: No Pain level: 1 Mental status: Baseline
== END 2024-05-13 10:08 | disposition home or self-care (01) ==
PROVIDERS: Student in an Organized Health Care Education/Training Program; PCP Family Medicine; Visit Provider Student in an Organized Health Care Education/Training Program
PROC: 0DJ08ZZ Inspection of Upper Intestinal Tract, Via Natural or Artificial Opening Endoscopic (ICD-10-PCS; CPT 43235; principal; 2024-05-13 08:40)
DX: D50.9 Iron deficiency anemia, unspecified (principal); K29.50 Unspecified chronic gastritis without bleeding
CPT/HCPCS: 43239; 81025; 88305; 88342; J2250; J2704; J7030

== ENCOUNTER 2024-05-15 08:55 | Oncology outpatient (recurring) (ONCR) | payer MEDICAID, SELFPAY ==
[2024-05-15 09:47] LABS: Basophils % 0.6 %; Eosinophils # 0.1 10^3/uL (0.0-0.8); Eosinophils % 1.9 %; Hematocrit 42.9 % (36-47); Lymphocytes # 1.5 10^3/uL (0.8-4.8); Lymphocytes % 27.5 %; Mean Corpuscular HGB Conc 33.6 g/dL (30-55); Mean Corpuscular Volume 83.5 fl (85-98); Mean Platelet Volume 8.4 fL (7.4-10.4); Monocytes # 0.3 10^3/uL (0.2-0.9); Monocytes % 6.2 %; Neutrophils # 3.36 10^3/uL (1.8-7.7); Neutrophils % 63.4 %; Nucleated Red Blood Cells % 0 %; Platelet Count 261 10^3/cmm (157-399); Red Blood Count 5.14 10^6/uL (3.85-5.65)
[2024-05-15 10:09] LABS: Alanine Aminotransferase 14 U/L (0-33); Albumin Level 4.8 g/dL (3.5-5.2); Alkaline Phosphatase 52 U/L (35-105); Anion Gap 18.9 (5-19); Aspartate Amino Transferase 17 U/L (0-32); Blood Urea Nitrogen 7 mg/dL (6-20); Calcium 9.7 mg/dL (8.5-10.5); Carbon Dioxide 24 mmol/L (22-29); Chloride 104 mmol/L (98-107); Ferritin 150 ng/mL (15-150); Globulin 2.5 g/dL (1.3-4.6); Glomerular Filtration Rate 119.9 mL/min (90-130); Glucose 84 mg/dL (65-115); Iron 97 ug/dL (37-145); Osmolality Calculated 293 mOsm/kg (285-295); Percent Saturation 38.3 % (20-50); Potassium 3.9 mmol/L (3.5-5.1); Sodium 143 mmol/L (136-145); Total Bilirubin 0.3 mg/dL (0.15-1.2); Total Iron Binding Capacity 253 mcg/dl; Total Protein 7.3 g/dL (6.6-8.7); Unsaturated Iron Binding 156 ug/dL (112-347)
[2024-05-15 12:12] LABS: Vitamin B12 469 pg/mL (232-1245)
[2024-05-21 09:53] LABS: HLA DQB1 DQB1*05 (DQ5); HLA DQB1 DQB1*06 (DQ6); HLA DRB1 DRB1*01 (DR1); HLA DRB1 DRB1*13 (DR13)
== END 2024-05-26 23:59 | disposition home or self-care (01) ==
PROVIDERS: Nurse Practitioner Family; PCP Family Medicine; Visit Provider Internal Medicine Medical Oncology
DX: D50.9 Iron deficiency anemia, unspecified (principal); K40.91 Unilateral inguinal hernia, without obstruction or gangrene, recurrent; R53.83 Other fatigue; Z82.49 Family history of ischemic heart disease and other diseases of the circulatory system
CPT/HCPCS: 36415; 80053; 81375; 82607; 82728; 83540; 83550; 85025

== ENCOUNTER 2024-07-03 10:12 | Oncology outpatient (recurring) (ONCR) | payer MEDICAID, SELFPAY ==
[2024-07-03 10:26] LABS: Basophils % 0.6 %; Eosinophils # 0.1 10^3/uL (0.0-0.8); Eosinophils % 2.1 %; Hematocrit 41.5 % (36-47); Lymphocytes # 1.9 10^3/uL (0.8-4.8); Mean Corpuscular Hemoglobin 29.8 pg (27-33); Mean Corpuscular Volume 87.7 fl (85-98); Mean Platelet Volume 8.8 fL (7.4-10.4); Monocytes # 0.3 10^3/uL (0.2-0.9); Monocytes % 4.8 %; Neutrophils # 3.88 10^3/uL (1.8-7.7); Neutrophils % 62.2 %; Nucleated Red Blood Cells % 0 %; Platelet Count 315 10^3/cmm (157-399); Red Blood Count 4.73 10^6/uL (3.85-5.65); Red Cell Distribution Width 13.9 % (12.1-15.1); White Blood Count 6.24 10^3/uL (3.29-11.43)
[2024-07-03 10:38] LABS: Alanine Aminotransferase 8 U/L (0-33); Albumin Level 4.7 g/dL (3.5-5.2); Alkaline Phosphatase 61 U/L (35-105); Aspartate Amino Transferase 13 U/L (0-32); Blood Urea Nitrogen 6 mg/dL (6-20); Carbon Dioxide 25 mmol/L (22-29); Chloride 107 mmol/L (98-107); Ferritin 165 ng/mL (15-150); Globulin 1.8 g/dL (1.3-4.6); Glucose 87 mg/dL (65-115); Iron 75 ug/dL (37-145); Osmolality Calculated 289 mOsm/kg (285-295); Sodium 141 mmol/L (136-145); Total Bilirubin 0.2 mg/dL (0.15-1.2); Total Iron Binding Capacity 267 mcg/dl; Total Protein 6.5 g/dL (6.6-8.7); Unsaturated Iron Binding 192 ug/dL (112-347)
== END 2024-07-26 23:59 | disposition home or self-care (01) ==
PROVIDERS: Nurse Practitioner Family; PCP Family Medicine; Visit Provider Internal Medicine Hematology & Oncology
DX: D50.9 Iron deficiency anemia, unspecified (principal); K40.91 Unilateral inguinal hernia, without obstruction or gangrene, recurrent; R53.83 Other fatigue; Z82.49 Family history of ischemic heart disease and other diseases of the circulatory system; Z53.9 Procedure and treatment not carried out, unspecified reason
CPT/HCPCS: 80053; 82728; 83540; 83550; 85025

== ENCOUNTER → 2024-07-10 13:31 | Outpatient (BNVA) | payer MEDICAID, SELFPAY | PROVIDERS: PCP Family Medicine; Visit Provider Obstetrics & Gynecology | DX: R52 Pain, unspecified (principal) | CPT/HCPCS: 76830 ==

== ENCOUNTER → 2024-07-26 17:54 | Outpatient (BNVA) | payer MEDICAID, SELFPAY | PROVIDERS: PCP Family Medicine; Visit Provider Emergency Medicine | DX: S40.012A Contusion of left shoulder, initial encounter (principal); W19.XXXA Unspecified fall, initial encounter | CPT/HCPCS: 73030 ==

== ENCOUNTER 2024-10-09 08:56 | Oncology outpatient (recurring) (ONCR) | payer MEDICAID, SELFPAY ==
[2024-10-09 09:26] LABS: Basophils % 0.6 %; Eosinophils # 0.1 10^3/uL (0.0-0.8); Eosinophils % 2.1 %; Hematocrit 43.2 % (36-47); Lymphocytes # 1.4 10^3/uL (0.8-4.8); Lymphocytes % 26.9 %; Mean Corpuscular HGB Conc 33.8 g/dL (30-55); Mean Corpuscular Volume 88.7 fl (85-98); Monocytes # 0.3 10^3/uL (0.2-0.9); Neutrophils # 3.29 10^3/uL (1.8-7.7); Neutrophils % 64.2 %; Nucleated Red Blood Cells % 0 %; Platelet Count 251 10^3/cmm (157-399); Red Blood Count 4.87 10^6/uL (3.85-5.65); Red Cell Distribution Width 12.5 % (12.1-15.1); White Blood Count 5.13 10^3/uL (3.29-11.43)
[2024-10-09 09:51] LABS: Reticulocyte % 1.1 % (0.5-2.0)
[2024-10-09 10:10] LABS: Alanine Aminotransferase 11 U/L (0-33); Albumin Level 4.7 g/dL (3.5-5.2); Alkaline Phosphatase 60 U/L (35-105); Aspartate Amino Transferase 14 U/L (0-32); Blood Urea Nitrogen 10 mg/dL (6-20); Calcium 9.6 mg/dL (8.5-10.5); Carbon Dioxide 28 mmol/L (22-29); Chloride 105 mmol/L (98-107); Ferritin 170 ng/mL (15-150); Globulin 2.5 g/dL (1.3-4.6); Glucose 84 mg/dL (65-115); Iron 141 ug/dL (37-145); Lactate Dehydrogenase 118 U/L (135-214); Osmolality Calculated 292 mOsm/kg (285-295); Percent Saturation 49.3 % (20-50); Sodium 142 mmol/L (136-145); Total Bilirubin 0.5 mg/dL (0.15-1.2); Total Iron Binding Capacity 286 mcg/dl; Total Protein 7.2 g/dL (6.6-8.7); Unsaturated Iron Binding 145 ug/dL (112-347); Vitamin B12 435 pg/mL (232-1245)
[2024-10-09 10:14] LABS: Folate Level 4.7 ng/mL (4.8-37.3)
== END 2024-10-24 23:59 | disposition home or self-care (01) ==
LOC: ONCMED 08:56
PROVIDERS: Internal Medicine Hematology & Oncology; PCP Family Medicine; Visit Provider Internal Medicine
DX: D50.8 Other iron deficiency anemias (principal)
CPT/HCPCS: 36415; 80053; 82607; 82728; 82746; 83010; 83540; 83550; 83615; 85025; 85045